=== PATIENT | female | born 1950 | race Caucasian/White ===

== ENCOUNTER 2018-11-03 13:44 | Emergency (ER) | payer MEDICARE, OTHER ==
[~2018-11-03] VITALS: Ht 172.7 cm; Wt 75.0 kg
[2018-11-03] MEDS ORDERED: ATOR1TAB21 (13:56)
[2018-11-03] MEDS ORDERED: ESOM40CA35 (13:56)
[2018-11-03] MEDS ORDERED: BUTA-198 (13:56)
[2018-11-03] MEDS ORDERED: LATANOPROST (13:56)
[2018-11-03] MEDS ORDERED: ESTR1MIS (13:56)
[2018-11-03] MEDS ORDERED: AMIT10TA (13:56)
--- NOTE | 2018-11-03 15:58 | REP ---
LEFT KNEE SERIES: Five views of the left knee are performed. There is no acute fracture or dislocation. There is minimal medial joint space narrowing. There is mild lateral patellofemoral compartment narrowing with subchondral sclerosis. There is mild spurring of the lateral patellar facet. There does not appear to be a significant joint effusion. IMPRESSION: Mild degenerative changes without other significant finding. Electronically Signed by Axel Munoz MD 11/03/2018 04:52 P
[2018-11-03] MEDS ORDERED: ULTR50TA8 PO (16:18)
[2018-11-03 16:28] VITALS: BP 143/76
[2018-11-03] MEDS ORDERED: ACETAMINOPHEN TAB 650MG DOSE (2X325MG) PO ONE (16:30)
[2018-11-03] MEDS ORDERED: traMADol 50 MG TAB PO ONE (16:30)
== END 2018-11-03 16:29 | disposition home or self-care (01) ==
LOC: M ED 13:44
DX: M23.92 Unspecified internal derangement of left knee (principal); E78.00 Pure hypercholesterolemia, unspecified; H40.9 Unspecified glaucoma; K21.9 Gastro-esophageal reflux disease without esophagitis; Z88.5 Allergy status to narcotic agent

== ENCOUNTER 2019-02-04 21:42 | Emergency (ER) | payer MEDICARE, OTHER ==
[~2019-02-04] VITALS: Ht 172.7 cm; Wt 75.9 kg
[~2019-02-04 21:42] MED LIST: AMIT10TA; ATOR1TAB21; BUTA-198; ESOM40CA35; ESTR1MIS; LATANOPROST; ULTR50TA8 PO
--- NOTE | 2019-02-05 00:12 | REPVR ---
PROCEDURE INFORMATION: Exam: US Duplex Left Lower Extremity Veins, Limited Exam date and time: 02/04/2019 11:31 PM Clinical history: 68 years old, female; Pain; Leg, lower; Left; Additional info: Lle warm, red, swollen TECHNIQUE: Imaging protocol: Real-time Duplex ultrasound of the Left Lower Extremity with 2-D case scale, color Doppler flow and spectral waveform analysis with image documentation. Limited exam focused on the left lower extremity veins. COMPARISON: No relevant prior studies available. FINDINGS: Left deep veins: Unremarkable. The common femoral, femoral and popliteal veins are patent without thrombus. Normal compressibility, augmentation response and Doppler waveforms. Left superficial veins: Unremarkable. Saphenofemoral junction is patent without thrombus. Soft tissues: Unremarkable. IMPRESSION: No sonographic evidence of deep vein thrombosis. Electronically signed by: Bryon Rashid On 02/05/2019 00:11:19 AM
[2019-02-05 01:15] LABS: BASO # 0.1 10^3/uL (0.0-0.2); BASO % 0.4 % (0.0-1.0); EOS # 0.3 10^3/uL (0.0-0.5); EOS % 2.9 % (0.0-3.0); HEMATOCRIT 37.9 % (36.0-47.0); HEMOGLOBIN 12.6 g/dl (12.0-15.5); LYMPH # 2.8 10^3/uL (1.5-5.0); LYMPH % 23.8 % (24.0-44.0); MEAN CORPUSCULAR HGB CONC 33.2 g/dl (32.0-36.5); MEAN CORPUSCULAR VOLUME 96.2 fl (80.0-96.0); MONO # 1.1 10^3/uL (0.0-0.8); MONO % 9.4 % (0.0-5.0); NEUTROPHILS # 7.3 10^3/uL (1.5-8.5); NEUTROPHILS % 62.6 % (36.0-66.0); PLATELET COUNT, AUTOMATED 308 10^3/uL (150-450); RED BLOOD COUNT 3.94 10^6/uL (4.00-5.40); WHITE BLOOD COUNT 11.6 10^3/uL (4.0-10.0)
[2019-02-05 01:36] LABS: C REACTIVE PROTEIN QUANTITATIV 0.76 MG/DL (0.00-0.30); CALCIUM LEVEL 8.6 MG/DL (8.8-10.2); CREATININE FOR GFR 0.99 MG/DL (0.55-1.30); POTASSIUM SERUM 3.9 MEQ/L (3.5-5.1)
[2019-02-05 01:37] LABS: ERYTHROCYTE SEDIMENTATION RATE 11 mm/hr (0-30)
[2019-02-05 02:04] VITALS: BP 138/88
== END 2019-02-05 02:09 | disposition home or self-care (01) ==
LOC: M ED 21:42
DX: M25.462 Effusion, left knee (principal); E78.5 Hyperlipidemia, unspecified; K21.9 Gastro-esophageal reflux disease without esophagitis; H40.9 Unspecified glaucoma; G43.909 Migraine, unspecified, not intractable, without status migrainosus; Z79.899 Other long term (current) drug therapy; Z88.5 Allergy status to narcotic agent; Z88.8 Allergy status to other drugs, medicaments and biological substances

== ENCOUNTER 2019-11-21 15:58 | Emergency (ER) | payer MEDICARE, OTHER ==
[~2019-11-21] VITALS: Ht 172.7 cm; Wt 78.6 kg
[2019-11-21] MEDS ORDERED: BENA25CA4 PO (16:25)
[2019-11-21] MEDS ORDERED: AZOP0.2S (16:26)
[2019-11-21] MEDS ORDERED: LATANOPROST (16:26)
[2019-11-21] MEDS ORDERED: methylPREDNISolone 125MG 2ML VIAL IM ONE (16:45)
[2019-11-21] MEDS ORDERED: diphenhydrAMINE 25MG CAP PO ONE (16:45)
[2019-11-21] MEDS ORDERED: MEDR4PAK PO (17:12)
[2019-11-21] MEDS ORDERED: EPIP0.3I2 IM (17:12)
[2019-11-21 17:14] VITALS: BP 142/84
== END 2019-11-21 17:17 | disposition home or self-care (01) ==
LOC: M ED 15:58
DX: S60.462A Insect bite (nonvenomous) of right middle finger, initial encounter (principal); S00.86XA Insect bite (nonvenomous) of other part of head, initial encounter; Z91.038 Other insect allergy status; Z88.5 Allergy status to narcotic agent; Z88.8 Allergy status to other drugs, medicaments and biological substances; E78.00 Pure hypercholesterolemia, unspecified; K21.9 Gastro-esophageal reflux disease without esophagitis; Y92.89 Other specified places as the place of occurrence of the external cause; Y99.9 Unspecified external cause status; Y93.89 Activity, other specified
CPT/HCPCS: 96372; 99283; J2930